=== PATIENT | male | born 1975 | race Caucasian/White ===

== ENCOUNTER 2016-06-04 16:16 | Emergency (ER) | payer BC ==
[~2016-06-04] VITALS: Ht 198.1 cm; Wt 169.8 kg
[2016-06-04 16:23] VITALS: TEMP 36.5; Ht 198.1 cm; Wt 169.8 kg
[2016-06-04] MEDS ORDERED: ONDANSETRON INJ 2 MG/ML 2 ML VIAL IV STA (16:33)
[2016-06-04] MEDS ORDERED: SODIUM CHLORIDE 0.9% 1000ML 1,000 ML IV STA (16:33)
[2016-06-04] MEDS ORDERED: HYDROmorphone INJ 1 MG/ML SYR IV STA (16:33)
[2016-06-04 16:43] LABS: BASO % 0.2 %; BASO ABS # 0.02 K/uL (0-0.2); COMPLETE YES; EOS % 1.1 %; HEMATOCRIT 42.7 % (42-52); IG% 0.3 %; LYMPH % 36.4 %; LYMPH ABS # 3.18 K/uL (1.2-3.4); MEAN CELL VOLUME 87.1 fL (80-100); MEAN CORPUSCULAR HEMOGLOBIN 30.2 pg (25-34); MEAN CORPUSCULAR HGB CONC 34.7 g/dl (32-36); MEAN PLATELET VOLUME 9.4 fL (7.4-10.4); MONO % 6.9 %; NEUT % 55.1 %; PLATELET COUNT 259 K/uL (130-400); WHITE BLOOD COUNT 8.74 K/uL (4.8-10.8)
[2016-06-04] MEDS ORDERED: LISI-461 PO (16:47)
[2016-06-04 16:58] LABS: BUN/CREATININE RATIO 11.5 (10-20); CREATININE 1.3 mg/dl (0.60-1.40); POTASSIUM 3.7 mmol/L (3.5-5.1)
[2016-06-04 17:02] LABS: URINE APPEARANCE CLEAR (CLEAR); URINE BILIRUBIN NEG (NEG); URINE COLOR DK YELLOW; URINE NITRITE NEG (NEG); URINE SPECIFIC GRAVITY 1.023 (1.000-1.030); UROBILINOGEN NEG (NEG); ZZUR CULT IF INDIC CLEAN CATCH NO
[2016-06-04 17:04] LABS: MANUAL MICROSCOPIC REQUIRED? NO; REVIEW REQ? NO
--- NOTE | 2016-06-04 17:30 | DIAGNOSTIC IMAGING REPORT ---
CT SCAN OF THE ABDOMEN AND PELVIS WITHOUT CONTRAST CLINICAL HISTORY: Severe left flank pain COMPARISON STUDY: No previous studies for comparison. TECHNIQUE: CT scan of the abdomen and pelvis was performed from the lung bases to the proximal femurs. Images are reviewed in the axial, sagittal, and coronal planes. IV contrast was not administered for this examination. CT DOSE: 2052.22 mGy.cm FINDINGS: Lower chest: There are mild bibasal atelectatic changes present. Liver: The unenhanced liver is normal in size, contour, and attenuation. There is no intrahepatic biliary ductal dilatation. Gallbladder: Unremarkable. Spleen: Normal in size and attenuation. Pancreas: Unremarkable. Adrenal glands: Unremarkable. Kidneys: There is a 3 mm nonobstructing upper pole right renal calculus. There is a 2 mm nonobstructing mid pole right renal calculus. There is a punctate nonobstructing lower pole right renal calculus. There is a 2 mm lower pole nonobstructing left renal calculus. There is mild fullness of the left renal collecting system. There is a 4 mm proximal left ureteral calculus with mild secondary obstructive changes at the L2-3 level. Bowel: There are no transition zones indicate bowel obstruction. The appendix appears normal. There is no acute diverticulitis. Peritoneum: There is no free air. There is no ascites. There is a small fat-containing umbilical hernia. Vasculature: The abdominal aorta is normal in course and caliber. Adenopathy: None. Pelvic viscera: There is borderline bladder wall thickening. Skeletal structures: No destructive osseous lesions are seen. IMPRESSION: 1. Bilateral nephrolithiasis 2. 4 mm proximal left ureteral calculus with mild secondary obstructive changes 3. No evidence of bowel obstruction. No evidence of free air. Normal appendix. Electronically signed by: Miguel Angel Orosco M.D. 06/04/2016 5:28 PM Dictated Date/Time: 06/04/2016 5:23 PM
[2016-06-04] MEDS ORDERED: TAMS0.4C38 PO (19:17)
[2016-06-04] MEDS ORDERED: OXYC1TAB3 PO (19:17)
[2016-06-04] MEDS ORDERED: OXYCODONE IR HOME PACK PO ONE (19:30)
[2016-06-04 19:34] VITALS: BP 148/83; PULSE 81; O2SAT 98
--- NOTE | 2016-06-04 19:40 | EMERGENCY ROOM VISIT NOTE ---
History Report prepared by Brock: Faustino Nichols Under the Supervision of: Dr. Simone Coombs D.O. First contact with patient: 16:26 Chief Complaint: FLANK PAIN Stated Complaint: PAIN IN LOWER LF CHEST/SIDE ABD,SWEATING History of Present Illness The patient is a 41 year old male who presents to the Emergency Room with complaints of persistent pain in his abdomen that started 3 hours ago. The patient notes that the pain is on his left side and describes it as severe. He has never had discomfort like this. He also complains of nausea and had one episode of vomiting. He notes that the pain is fairly acute since around lunchtime has been focal on his left side. He notes it does radiate into his lower abdomen. No urinary symptoms. No history of renal stones. Pt denies headache, change in vision, fevers, chest pain, shortness of breath, diarrhea, pain with urination, weakness or numbness in extremities, and melena. Source of History: patient Onset: 3 hours ago Position: abdomen (left-side) Symptom Intensity: severe Timing: other (persistent) Associated Symptoms: + nausea, + vomiting, No SOB, No chest pain, No diarrhea, No headache, No melena, No urinary symptoms Note: Denies: changes in vision, weakness or numbness in extremities. Review of Systems See HPI for pertinent positives & negatives. A total of 10 systems reviewed and were otherwise negative. Past Medical & Surgical Medical Problems: (1) No Known Active Medical Problems Family History Patient reports no known family medical history. Social History Smoking Status: Never Smoker Marital Status: Housing Status: lives alone Occupation Status: employed Current/Historical Medications Scheduled Lisinopril (Zestril), 10 MG PO DAILY Tamsulosin Hcl (Flomax), 0.4 MG PO DAILY Scheduled PRN Oxycodone Immediate Rel Tab (Roxicodone Ir), 1-2 TAB PO Q4H PRN for Severe Pain Allergies Coded Allergies: No Known Allergies (Unverified , 06/04/16) Physical Exam Vital Signs Date Time Temp Pulse Resp B/P Pulse Ox O2 Delivery O2 Flow Rate FiO2 06/04/16 19:34 81 18 148/83 98 06/04/16 18:43 81 18 148/83 98 Room Air 06/04/16 17:29 78 18 157/90 98 Room Air 06/04/16 16:23 36.5 93 18 178/111 98 Room Air Physical Exam GENERAL: sitting up in bed, disheveled, moderate distress. EYE EXAM: normal conjunctiva, OROPHARYNX: no exudate, no erythema, lips, buccal mucosa, and tongue normal and mucous membranes are moist NECK: supple, no nuchal rigidity, no adenopathy, non-tender LUNGS: Clear to auscultation. Normal chest wall mechanics HEART: no murmurs, S1 normal and S2 normal ABDOMEN: abdomen soft, slight left flank pain, normo-active bowel sounds, no masses, no rebound or guarding. BACK: Back is symmetrical on inspection and there is no deformity, no midline tenderness, no CVA tenderness. SKIN: no rashes and no bruising UPPER EXTREMITIES: upper extremities are grossly normal. LOWER EXTREMITIES: No pitting edema. NEURO EXAM: Normal sensorium, cranial nerves II-XII grossly intact, normal speech, no gross weakness of arms, no gross weakness of legs. Gross sensation intact. Medical Decision & Procedures ER Provider Diagnostic Interpretation: CT:Per my review, radiologist interpretation. CT SCAN OF THE ABDOMEN AND PELVIS WITHOUT CONTRAST CLINICAL HISTORY: Severe left flank pain COMPARISON STUDY: No previous studies for comparison. TECHNIQUE: CT scan of the abdomen and pelvis was performed from the lung bases to the proximal femurs. Images are reviewed in the axial, sagittal, and coronal planes. IV contrast was not administered for this examination. CT DOSE: 2052.22 mGy.cm FINDINGS: Lower chest: There are mild bibasal atelectatic changes present. Liver: The unenhanced liver is normal in size, contour, and attenuation. There is no intrahepatic biliary ductal dilatation. Gallbladder: Unremarkable. Spleen: Normal in size and attenuation. Pancreas: Unremarkable. Adrenal glands: Unremarkable. Kidneys: There is a 3 mm nonobstructing upper pole right renal calculus. There is a 2 mm nonobstructing mid pole right renal calculus. There is a punctate nonobstructing lower pole right renal calculus. There is a 2 mm lower pole nonobstructing left renal calculus. There is mild fullness of the left renal collecting system. There is a 4 mm proximal left ureteral calculus with mild secondary obstructive changes at the L2-3 level. Bowel: There are no transition zones indicate bowel obstruction. The appendix appears normal. There is no acute diverticulitis. Peritoneum: There is no free air. There is no ascites. There is a small fat-containing umbilical hernia. Vasculature: The abdominal aorta is normal in course and caliber. Adenopathy: None. Pelvic viscera: There is borderline bladder wall thickening. Skeletal structures: No destructive osseous lesions are seen. IMPRESSION: 1. Bilateral nephrolithiasis 2. 4 mm proximal left ureteral calculus with mild secondary obstructive changes 3. No evidence of bowel obstruction. No evidence of free air. Normal appendix. Electronically signed by: Miguel Angel Orosco M.D. 06/04/2016 5:28 PM Dictated Date/Time: 06/04/2016 5:23 PM Laboratory Results 06/04/16 16:32 Red Blood Count 4.90, Mean Corpuscular Volume 87.1, Mean Corpuscular Hemoglobin 30.2, Mean Corpuscular Hemoglobin Concent 34.7, Mean Platelet Volume 9.4, Neutrophils (%) (Auto) 55.1, Lymphocytes (%) (Auto) 36.4, Monocytes (%) (Auto) 6.9, Eosinophils (%) (Auto) 1.1, Basophils (%) (Auto) 0.2, Neutrophils # (Auto) 4.81, Lymphocytes # (Auto) 3.18, Monocytes # (Auto) 0.60, Eosinophils # (Auto) 0.10, Basophils # (Auto) 0.02 06/04/16 16:32 Test 06/04/16 16:32 06/04/16 16:35 White Blood Count 8.74 K/uL (4.8-10.8) Red Blood Count 4.90 M/uL (4.7-6.1) Hemoglobin 14.8 g/dL (14.0-18.0) Hematocrit 42.7 % (42-52) Mean Corpuscular Volume 87.1 fL (80-100) Mean Corpuscular Hemoglobin 30.2 pg (25-34) Mean Corpuscular Hemoglobin Concent 34.7 g/dl (32-36) Platelet Count 259 K/uL (130-400) Mean Platelet Volume 9.4 fL (7.4-10.4) Neutrophils (%) (Auto) 55.1 % Lymphocytes (%) (Auto) 36.4 % Monocytes (%) (Auto) 6.9 % Eosinophils (%) (Auto) 1.1 % Basophils (%) (Auto) 0.2 % Neutrophils # (Auto) 4.81 K/uL (1.4-6.5) Lymphocytes # (Auto) 3.18 K/uL (1.2-3.4) Monocytes # (Auto) 0.60 K/uL (0.11-0.59) Eosinophils # (Auto) 0.10 K/uL (0-0.5) Basophils # (Auto) 0.02 K/uL (0-0.2) RDW Standard Deviation 40.0 fL (36.4-46.3) RDW Coefficient of Variation 12.5 % (11.5-14.5) Immature Granulocyte % (Auto) 0.3 % Immature Granulocyte # (Auto) 0.03 K/uL (0.00-0.02) Anion Gap 9.0 mmol/L (3-11) Est Creatinine Clear Calc Drug Dose 131.1 ml/min Estimated GFR () 79.1 Estimated GFR (Non- 68.3 BUN/Creatinine Ratio 11.5 (10-20) Calcium Level 9.0 mg/dl (8.5-10.1) Total Bilirubin 1.3 mg/dl (0.2-1) Direct Bilirubin 0.2 mg/dl (0-0.2) Aspartate Amino Transf (AST/SGOT) 12 U/L (15-37) Alanine Aminotransferase (ALT/SGPT) 31 U/L (12-78) Alkaline Phosphatase 63 U/L (45-117) Total Protein 7.3 gm/dl (6.4-8.2) Albumin 4.0 gm/dl (3.4-5.0) Lipase 177 U/L (73-393) Urine Color DK YELLOW Urine Appearance CLEAR (CLEAR) Urine pH 5.0 (4.5-7.5) Urine Specific [place] 1.023 (1.000-1.030) Urine Protein NEG (NEG) Urine Glucose (UA) NEG (NEG) Urine Ketones TRACE (NEG) Urine Occult Blood 2+ (NEG) Urine Nitrite NEG (NEG) Urine Bilirubin NEG (NEG) Urine Urobilinogen NEG (NEG) Urine Leukocyte Esterase NEG (NEG) Urine WBC (Auto) 1-5 /hpf (0-5) Urine RBC (Auto) 10-30 /hpf (0-4) Urine Hyaline Casts (Auto) 1-5 /lpf (0-5) Urine Epithelial Cells (Auto) 5-10 /lpf (0-5) Urine Bacteria (Auto) NEG (NEG) Laboratory results per my review. Medications Administered Medications (Trade) Dose Ordered Sig/Lisa Route Start Time Stop Time Status Last Admin Dose Admin Sodium Chloride (Nss 1000ml) 1,000 ml @ 999 mls/hr Q1H1M STAT IV 06/04/16 16:33 06/04/16 17:33 DC 06/04/16 16:43 999 MLS/HR Ondansetron HCl (Zofran Inj) 4 mg NOW STAT IV 06/04/16 16:33 06/04/16 16:35 DC 06/04/16 16:43 4 MG Hydromorphone HCl (Dilaudid Inj) 1 mg NOW STAT IV 06/04/16 16:33 06/04/16 16:35 DC 06/04/16 16:43 1 MG Oxycodone HCl (Roxicodone Immediate Rel 5MG Home Pack) 1 homepack UD ONCE PO 06/04/16 19:30 06/04/16 19:31 DC 06/04/16 19:32 1 HOMEPACK ED Course ED COURSE: Vital signs were reviewed and showed normal. The patients medical record was reviewed The above diagnostic studies were performed and reviewed. ED treatments and interventions as stated above. 1630: The patient was evaluated in room C1. A complete history and physical examination was performed. 1633: Ordered Dilaudid Inj 1 mg IV, Zofran Inj 4 mg IV, NSS 1000 ml @ 999 mls/ hr IV. 1929: Ordered Oxycodone HCl 1 homepack PO. 6: Upon reevaluation, the patient is resting.I discussed my findings with the patient and he understands and agrees with the treatment plan. Based on the patients age, coexisting illnesses, exam and lab findings the decision to treat as an outpatient was made. The patient remained stable while under my care. The patient appeared well at the time of discharge. Medical Decision Differential diagnoses includes but is not limited to gastritis, peptic ulcer disease, GERD, gallbladder disease, pancreatitis, small bowel obstruction, acute coronary syndrome, pericarditis, ischemic bowel, irritable bowel disease, irritable bowel syndrome, appendicitis, diverticulitis, malignancy, hernia, urinary tract infection, torsion, perforation, trauma, infectious. Patient is a 41-year-old male who presents the ER for severe left-sided flank pain. Upon evaluation he is diaphoretic and in significant distress holding his left flank. He has the pain came on suddenly and has been fairly persistent. His exam is fairly benign otherwise. UA does shows hematuria. CBC along with BMP, and LFTs are unremarkable. Bilirubin is slightly elevated at 1.3. CT of the abdomen and pelvis shows 4 mm proximal left renal stone with mild hydronephrosis. UA does not suggest UTI. Patient was given IV Dilaudid and saline with improvement of his pain. He does not require any other narcotics medications. He was updated in regards to his findings. He was discharged with OxyIR and Flomax. He is instructed not to drive, drink, operate heavy machinery following 12 hours of taking the OxyIR. Any fevers greater than 100.4 he was given strict instructions to return immediately to the ER. Discussed with Pt concerning signs and symptoms to watch out for. Pt was instructed to follow up with their PCP and discussed with the patient their option to return to the ED at anytime for persistent or worsening symptoms. The appropriate anticipatory guidance and out-patient management, including indications for return to the emergency department, were explained at length to the patient and understood. Impression Primary Impression: Hydronephrosis Additional Impression: Flank pain Scribe Attestation The scribe's documentation has been prepared under my direction and personally reviewed by me in its entirety. I confirm that the note above accurately reflects all work, treatment, procedures, and medical decision making performed by me. Departure Information Dispostion Home / Self-Care Prescriptions Tamsulosin Hcl (FLOMAX) 0.4 Mg Cap 0.4 MG PO DAILY, #10 CAP Prov: Simone Coombs, DO 06/04/16 Oxycodone Immediate Rel Tab (ROXICODONE IR) 5 Mg Tab 1-2 TAB PO Q4H Y for Severe Pain, #24 TAB Prov: Simone Coombs, DO 06/04/16 Referrals No Doctor, Assigned (PCP) Forms HOME CARE DOCUMENTATION FORM, IMPORTANT VISIT INFORMATION Patient Instructions My [facility] Additional Instructions Please follow up with your primary care doctor with in the next 24 hours. Any worsening of your symptoms, please return to the ED immediately. This includes fevers greater than 100.4, worsening pain, passing out, persistent nausea vomiting, or any other concerning signs or symptoms from your standpoint. Please follow up with urology within the week. You were given medications during this visit that will inhibit your ability to drive, operate machinery and work. Please do NOT drive, operate machinery or work for the next 12hrs. You were also given a prescription for a narcotic/oxy IR. While taking this medication you should also not drive, operate machinery and or work. Problem Qualifiers Primary Impression: Hydronephrosis Hydronephrosis type: with renal calculous obstruction Qualified Codes: N13.2 - Hydronephrosis with renal and ureteral calculous obstruction
== END 2016-06-04 19:36 | disposition home or self-care (01) ==
LOC: C.EDB 16:19 → C.EDC 19:36
DX: N13.2 Hydronephrosis with renal and ureteral calculous obstruction (principal); Z79.899 Other long term (current) drug therapy

== ENCOUNTER 2016-06-06 11:01 | Emergency (ER) | payer BC ==
[~2016-06-06] VITALS: Ht 198.1 cm; Wt 170.0 kg
[~2016-06-06 11:01] MED LIST: LISI-461 PO; OXYC1TAB3 PO; TAMS0.4C38 PO
[2016-06-06 11:04] VITALS: TEMP 36.6; Ht 198.1 cm; Wt 170.0 kg
[2016-06-06] MEDS ORDERED: HYDROmorphone INJ 1 MG/ML SYR IV STA (11:26)
[2016-06-06] MEDS ORDERED: SODIUM CHLORIDE 0.9% 1000ML 1,000 ML IV STA (11:26)
[2016-06-06] MEDS ORDERED: ONDANSETRON INJ 2 MG/ML 2 ML VIAL IV STA (11:26)
[2016-06-06] MEDS ORDERED: TAMSULOSIN HCL 0.4 MG CAP PO STA (11:31)
[2016-06-06 11:38] LABS: BASO % 0.1 %; BASO ABS # 0.01 K/uL (0-0.2); COMPLETE YES; EOS % 0.5 %; HEMATOCRIT 40.8 % (42-52); IG% 0.3 %; LYMPH % 18.5 %; LYMPH ABS # 1.44 K/uL (1.2-3.4); MEAN CELL VOLUME 87.4 fL (80-100); MEAN CORPUSCULAR HEMOGLOBIN 30.2 pg (25-34); MEAN CORPUSCULAR HGB CONC 34.6 g/dl (32-36); MEAN PLATELET VOLUME 9.2 fL (7.4-10.4); MONO % 4.9 %; NEUT % 75.7 %; PLATELET COUNT 193 K/uL (130-400); RED BLOOD COUNT 4.67 M/uL (4.7-6.1); WHITE BLOOD COUNT 7.78 K/uL (4.8-10.8)
[2016-06-06 11:55] LABS: CALCIUM 9.1 mg/dl (8.5-10.1); CREATININE 1.5 mg/dl (0.60-1.40); POTASSIUM 3.9 mmol/L (3.5-5.1)
--- NOTE | 2016-06-06 12:10 | EMERGENCY ROOM VISIT NOTE ---
History Report prepared by Brock: Ely Anthony Under the Supervision of: Dr. Nuno Mcneil M.D. First contact with patient: 11:15 Chief Complaint: FLANK PAIN Stated Complaint: LEFT SIDE PAIN/KIDNEY STONES History of Present Illness The patient is a 41 year old male who presents to the Emergency Room with complaints of severe left flank pain starting this morning. The patient was diagnosed with a kidney stone on the left side 2 days ago. His pain had been initially managed with the prescribed medication. He woke up this morning with worsened pain. He took 2 oxycodone without relief. He had 4 episodes of vomiting after taking the oxycodone. He also took Flomax without relief. He has been straining his urine. He denies any blood in urine. He currently rates a pain intensity of 8/10. The patient currently complains of nausea. He denies chest pain, shortness of breath, or any other complaints. Source of History: patient Onset: this morning Position: other (left flank) Symptom Intensity: 8/10 Timing: worsening Modifying Factors (Relieving): other (oxycodone without relief; Flomax without relief) Associated Symptoms: + nausea, + vomiting, No SOB, No chest pain Review of Systems See HPI for pertinent positives & negatives. A total of 10 systems reviewed and were otherwise negative. Past Medical & Surgical Medical Problems: (1) Flank pain (2) Hydronephrosis Family History Patient reports no known family medical history. Social History Smoking Status: Never Smoker Marital Status: Housing Status: lives alone Occupation Status: employed Current/Historical Medications Scheduled Lisinopril (Zestril), 10 MG PO DAILY Ondasetron Odt (Zofran Odt), 4 MG SL Q6H Tamsulosin Hcl (Flomax), 0.4 MG PO DAILY Scheduled PRN Oxycodone/Acetaminophen 5MG/325MG (Percocet 5MG/325MG), 1-2 TAB PO Q4H PRN for Pain Allergies Coded Allergies: No Known Allergies (Unverified , 06/06/16) Physical Exam Vital Signs Date Time Temp Pulse Resp B/P Pulse Ox O2 Delivery O2 Flow Rate FiO2 06/06/16 13:53 83 16 140/16 94 Room Air 06/06/16 13:01 93 16 170/99 98 Room Air 1/24/17 11:04 36.6 99 18 168/102 97 Room Air Physical Exam GENERAL: Patient is a healthy-appearing well-nourished HEAD: Normocephalic atraumatic EYES: Ocular movements intact pupils equal and react to light OROPHARYNX mucous membranes are moist no exudates present no erythema or edema present NECK: Supple no nuchal rigidity CHEST: Good equal expansion LUNGS: Clear and equal to auscultation CARDIAC: Normal S1 and S2 ABDOMEN: Soft nontender no guarding BACK: No CVA tenderness EXTREMITIES: No pain upon palpation normal muscle strength in all groups no clubbing cyanosis or edema NEURO: Patient is following commands is answering questions appropriately. Alert and oriented x3 Cranial Nerves 2-12 grossly intact Medical Decision & Procedures ER Provider Diagnostic Interpretation: X-ray results as stated below per my interpretation and radiologist interpretation. US results as stated below per my review and radiologist interpretation: KUB CLINICAL HISTORY: Left-sided flank pain COMPARISON STUDY: CT scan dated 06/04/2016 FINDINGS: There is no pathologic bowel dilatation. There is a 4 mm calcification at the L2-3 level on the left, consistent with a proximal left ureteral calculus. A faint density visualized on the right at the L2-3 level, likely represents artifact as there is no history of right-sided pain. The renal shadows are partially obscured by overlying bowel gas and fecal material. The patient's known intrarenal calculi are difficult to visualize with certainty. IMPRESSION: 4 mm proximal left ureteral calculus at the L2-3 level. Electronically signed by: Miguel Angel Orosco M.D. 06/06/2016 1:06 PM Dictated Date/Time: 06/06/2016 1:03 PM ULTRASOUND KIDNEYS AND BLADDER CLINICAL HISTORY: Left flank pain. Known obstructing left ureteral calculus. COMPARISON STUDY: Abdominal CT dated 06/04/2016. TECHNIQUE: Real-time, grayscale, and color flow sonography of the kidneys and bladder is performed. Images are reviewed in the transverse and longitudinal planes. The examination is degraded by large body habitus. FINDINGS: Kidneys: The kidneys are normal in size and echotexture. The right kidney measures 12.0 x 6.6 x 5.1 cm and the left kidney measures 11.5 x 7.2 x 6.2 cm. There is minimal left-sided hydronephrosis. There is no right-sided hydronephrosis. No shadowing renal calculi are identified. There is no sonographic evidence of contour deforming renal mass lesion. No perinephric fluid is identified. Bladder: The bladder is decompressed and not well assessed. A right jet was identified. Upper abdomen: Survey images of the right upper quadrant show hepatomegaly and hepatic steatosis. IMPRESSION: 1. There is minimal left-sided hydronephrosis. This is likely related to the known obstructing left ureteral calculus seen on 06/04/2016. 2. There is no right-sided hydronephrosis. 3. The bladder is decompressed and not well evaluated. Electronically signed by: Flex Apodaca M.D. 06/06/2016 12:49 PM Dictated Date/Time: 06/06/2016 12:44 PM Laboratory Results 06/06/16 11:20 Red Blood Count 4.67, Mean Corpuscular Volume 87.4, Mean Corpuscular Hemoglobin 30.2, Mean Corpuscular Hemoglobin Concent 34.6, Mean Platelet Volume 9.2, Neutrophils (%) (Auto) 75.7, Lymphocytes (%) (Auto) 18.5, Monocytes (%) (Auto) 4.9, Eosinophils (%) (Auto) 0.5, Basophils (%) (Auto) 0.1, Neutrophils # (Auto) 5.89, Lymphocytes # (Auto) 1.44, Monocytes # (Auto) 0.38, Eosinophils # (Auto) 0.04, Basophils # (Auto) 0.01 06/06/16 11:20 Test 06/06/16 11:20 06/06/16 11:30 White Blood Count 7.78 K/uL (4.8-10.8) Red Blood Count 4.67 M/uL (4.7-6.1) Hemoglobin 14.1 g/dL (14.0-18.0) Hematocrit 40.8 % (42-52) Mean Corpuscular Volume 87.4 fL (80-100) Mean Corpuscular Hemoglobin 30.2 pg (25-34) Mean Corpuscular Hemoglobin Concent 34.6 g/dl (32-36) Platelet Count 193 K/uL (130-400) Mean Platelet Volume 9.2 fL (7.4-10.4) Neutrophils (%) (Auto) 75.7 % Lymphocytes (%) (Auto) 18.5 % Monocytes (%) (Auto) 4.9 % Eosinophils (%) (Auto) 0.5 % Basophils (%) (Auto) 0.1 % Neutrophils # (Auto) 5.89 K/uL (1.4-6.5) Lymphocytes # (Auto) 1.44 K/uL (1.2-3.4) Monocytes # (Auto) 0.38 K/uL (0.11-0.59) Eosinophils # (Auto) 0.04 K/uL (0-0.5) Basophils # (Auto) 0.01 K/uL (0-0.2) RDW Standard Deviation 39.6 fL (36.4-46.3) RDW Coefficient of Variation 12.4 % (11.5-14.5) Immature Granulocyte % (Auto) 0.3 % Immature Granulocyte # (Auto) 0.02 K/uL (0.00-0.02) Anion Gap 12.0 mmol/L (3-11) Est Creatinine Clear Calc Drug Dose 113.7 ml/min Estimated GFR () 66.5 Estimated GFR (Non- 57.4 BUN/Creatinine Ratio 12.0 (10-20) Calcium Level 9.1 mg/dl (8.5-10.1) Total Bilirubin 1.2 mg/dl (0.2-1) Direct Bilirubin 0.2 mg/dl (0-0.2) Aspartate Amino Transf (AST/SGOT) 14 U/L (15-37) Alanine Aminotransferase (ALT/SGPT) 29 U/L (12-78) Alkaline Phosphatase 56 U/L (45-117) Total Protein 6.8 gm/dl (6.4-8.2) Albumin 3.9 gm/dl (3.4-5.0) Lipase 158 U/L (73-393) Urine Color YELLOW Urine Appearance CLEAR (CLEAR) Urine pH 5.0 (4.5-7.5) Urine Specific [place] 1.024 (1.000-1.030) Urine Protein TRACE (NEG) Urine Glucose (UA) NEG (NEG) Urine Ketones TRACE (NEG) Urine Occult Blood 3+ (NEG) Urine Nitrite NEG (NEG) Urine Bilirubin NEG (NEG) Urine Urobilinogen NEG (NEG) Urine Leukocyte Esterase NEG (NEG) Urine WBC (Auto) 1-5 /hpf (0-5) Urine RBC (Auto) 10-30 /hpf (0-4) Urine Hyaline Casts (Auto) 1-5 /lpf (0-5) Urine Epithelial Cells (Auto) 10-20 /lpf (0-5) Urine Bacteria (Auto) NEG (NEG) Labs reviewed by ED physician. Medications Administered Medications (Trade) Dose Ordered Sig/Lisa Route Start Time Stop Time Status Last Admin Dose Admin Sodium Chloride (Nss 1000ml) 1,000 ml @ 999 mls/hr Q1H1M STAT IV 06/06/16 11:26 06/06/16 12:26 DC 06/06/16 11:45 999 MLS/HR Hydromorphone HCl (Dilaudid Inj) 1 mg NOW STAT IV 06/06/16 11:26 06/06/16 11:27 DC 06/06/16 11:45 1 MG Ondansetron HCl (Zofran Inj) 4 mg NOW STAT IV 06/06/16 11:26 06/06/16 11:27 DC 06/06/16 11:45 4 MG Tamsulosin HCl (Flomax Cap) 0.4 mg NOW STAT PO 06/06/16 11:31 06/06/16 11:32 DC 06/06/16 11:45 0.4 MG Ketorolac Tromethamine (Toradol Inj) 30 mg NOW STAT IV 06/06/16 13:31 06/06/16 13:32 DC 06/06/16 13:38 30 MG ED Course 1115: Past medical records reviewed. The patient was evaluated in room A10. A complete history and physical examination was performed. 1126: Zofran Inj 4 mg IV, Dilaudid Inj 1 mg IV, Sodium Chloride 1000 ml @ 999 mls/hr IV 1131: Flomax Cap 0.4 mg PO 1309: I reevaluated the patient who is feeling better. 1331: Toradol Inj 30 mg IV 1340: Upon reexamination the patient is resting comfortably. I discussed results and treatment plan with the patient. He verbalizes agreement and understanding. The patient is ready for discharge. Medical Decision Differential diagnosis: Etiologies such as renal colic, appendicitis, diverticulitis, mesenteric ischemia, aortic pathology, infections, inflammatory bowel disease, PUD, biliary pathology, UTI, as well as others were entertained. This is a 41-year-old male who presents emergency department complaining of abdominal pain after being diagnosed with a kidney stone over the weekend. The patient has trip to [place] tomorrow. The patient does have a 4 mm stone. Using shared medical decision making with the patient and given the fact that normally urology would need to get involved do an intervention to remove a stone over the size a 10 mm we felt that ibuprofen would be a good alternative for pain control. For this reason the patient was given IV bolus of Toradol in the emergency department and started on Dilaudid. Repeat examination revealed improvement patient's symptoms. The x-ray shows that the stone is minimally moved. Patient was given Flomax in the emergency department he was given more Percocet for home as well as Zofran. I gave the patient the option of being admitted however to try this at home. Patient was in agreement with the treatment plan. Impression Primary Impression: Flank pain Additional Impression: Kidney stone on left side Scribe Attestation The scribe's documentation has been prepared under my direction and personally reviewed by me in its entirety. I confirm that the note above accurately reflects all work, treatment, procedures, and medical decision making performed by me. Departure Information Dispostion Home / Self-Care Prescriptions Oxycodone/Acetaminophen 5MG/325MG (PERCOCET 5MG/325MG) Tab 1-2 TAB PO Q4H Y for Pain, #14 TAB Prov: Nuno Mcneil MD 06/06/16 Ondasetron Odt (ZOFRAN ODT) 4 Mg Tab 4 MG SL Q6H for Nausea, #6 TAB Prov: Nuno Mcneil MD 06/06/16 Referrals Luis Manuel Ku M.D. (PCP) Forms HOME CARE DOCUMENTATION FORM, IMPORTANT VISIT INFORMATION Patient Instructions Kidney Stones Eval, Kidney Stones Expectant Therapy, Kidney Stones Prevent, My [facility] [employer] Additional Instructions Follow up with Dr Valentine's office You received narcotic or benzodiazepene medication while in the emergency room today. Do not drive, operate heavy machinery, or drink alcohol under the influence of this medication. Take 600 mg Ibuprofen every 6 hours Take Percocet for breakthrough pain You have been examined and treated today on an emergency basis only. This is not a substitute for, or an effort to provide, complete comprehensive medical care. It is impossible to recognize and treat all injuries or illnesses in a single emergency department visit. It is therefore important that you follow up closely with Dr Ku. Call as soon as possible for an appointment. Thank you for your time and consideration. I look forward to speaking with you again soon. Please don't hesitate to call us if you have any questions. Problem Qualifiers
[2016-06-06 12:15] LABS: URINE APPEARANCE CLEAR (CLEAR); URINE BILIRUBIN NEG (NEG); URINE COLOR YELLOW; URINE NITRITE NEG (NEG); URINE SPECIFIC GRAVITY 1.024 (1.000-1.030); UROBILINOGEN NEG (NEG)
[2016-06-06 12:20] LABS: MANUAL MICROSCOPIC REQUIRED? NO; REVIEW REQ? NO
--- NOTE | 2016-06-06 12:51 | DIAGNOSTIC IMAGING REPORT ---
ULTRASOUND KIDNEYS AND BLADDER CLINICAL HISTORY: Left flank pain. Known obstructing left ureteral calculus. COMPARISON STUDY: Abdominal CT dated 06/04/2016. TECHNIQUE: Real-time, grayscale, and color flow sonography of the kidneys and bladder is performed. Images are reviewed in the transverse and longitudinal planes. The examination is degraded by large body habitus. FINDINGS: Kidneys: The kidneys are normal in size and echotexture. The right kidney measures 12.0 x 6.6 x 5.1 cm and the left kidney measures 11.5 x 7.2 x 6.2 cm. There is minimal left-sided hydronephrosis. There is no right-sided hydronephrosis. No shadowing renal calculi are identified. There is no sonographic evidence of contour deforming renal mass lesion. No perinephric fluid is identified. Bladder: The bladder is decompressed and not well assessed. A right jet was identified. Upper abdomen: Survey images of the right upper quadrant show hepatomegaly and hepatic steatosis. IMPRESSION: 1. There is minimal left-sided hydronephrosis. This is likely related to the known obstructing left ureteral calculus seen on 06/04/2016. 2. There is no right-sided hydronephrosis. 3. The bladder is decompressed and not well evaluated. Electronically signed by: Flex Apodaca M.D. 06/06/2016 12:49 PM Dictated Date/Time: 06/06/2016 12:44 PM
--- NOTE | 2016-06-06 13:08 | DIAGNOSTIC IMAGING REPORT ---
KUB CLINICAL HISTORY: Left-sided flank pain COMPARISON STUDY: CT scan dated 06/04/2016 FINDINGS: There is no pathologic bowel dilatation. There is a 4 mm calcification at the L2-3 level on the left, consistent with a proximal left ureteral calculus. A faint density visualized on the right at the L2-3 level, likely represents artifact as there is no history of right-sided pain. The renal shadows are partially obscured by overlying bowel gas and fecal material. The patient's known intrarenal calculi are difficult to visualize with certainty. IMPRESSION: 4 mm proximal left ureteral calculus at the L2-3 level. Electronically signed by: Miguel Angel Orosco M.D. 06/06/2016 1:06 PM Dictated Date/Time: 06/06/2016 1:03 PM
[2016-06-06] MEDS ORDERED: KETOROLAC TROMETHAMINE 30 MG/ML VIAL IV STA (13:31)
[2016-06-06] MEDS ORDERED: OXYC-57 PO (13:42)
[2016-06-06] MEDS ORDERED: ONDA4TAB10 SL (13:42)
[2016-06-06 13:53] VITALS: BP 140/16; PULSE 83; O2SAT 94
== END 2016-06-06 13:59 | disposition home or self-care (01) ==
LOC: C.EDB 11:04 → C.EDA 13:59
DX: N20.0 Calculus of kidney (principal); Z79.899 Other long term (current) drug therapy